=== PATIENT | female | born 1990 | race American Indian/Alaskan Native ===

== ENCOUNTER 2020-11-29 05:57 | Day surgery (SDC) | payer MEDICAID ==
[2020-11-29] MEDS ORDERED: SCOPOLAMINE TRANSDERMAL PATCH 72 HR TD NR (06:00)
[2020-11-29] MEDS ORDERED: MIDAZOLAM 2 MG/2 ML INJ IV NR (06:00)
[2020-11-29] MEDS ORDERED: CELECOXIB 200 MG CAP PO NR (06:00)
[2020-11-29] MEDS ORDERED: ACETAMINOPHEN 500 MG TAB PO SCH (06:00)
[2020-11-29] MEDS ORDERED: GABAPENTIN 300 MG CAP PO NR (06:00)
[2020-11-29] MEDS ORDERED: LACTATED RINGERS 1,000 ML IV SCH (06:00)
--- NOTE | 2020-11-29 06:41 | Short Stay Summary ---
Short Stay Documentation Date of service: 11/29/20 Narrative H&P: Pt is a 30year old who presents today for elective sterilization. Pt is 2 months post delivery via . - History Principal diagnosis: Undesired fertility H&P: obtained from office Past Medical History: No medical history Past Surgical History: No surgical history Social history: single - Allergies and Medications Current Medications: Allergies No Known Allergies Allergy (Verified 11/15/20 14:58) Home Medications Medication Instructions Recorded Confirmed Last Taken Type No Known Home Medications [No 11/15/20 11/15/20 Unknown History Reported Home Medications] Active Medications Acetaminophen (Acetaminophen 500 Mg Tab) 1,000 mg PO PREOP MANI Celecoxib (Celecoxib 200 Mg Cap) 200 mg PO PREOP NR Stop: 11/29/20 23:00 Gabapentin (Gabapentin 300 Mg Cap) 300 mg PO PREOP NR Stop: 11/29/20 23:00 Lactated Ringer's (Lactated Ringers) 1,000 mls @ 100 mls/hr IV DIRECT MANI Stop: 11/29/20 23:59 Midazolam HCl (Midazolam 2 Mg/2 Ml Inj) 2 mg IV PREOP NR Stop: 11/29/20 23:00 Scopolamine (Scopolamine Transdermal Patch 72 Hr) 1 each TD PREOP NR Stop: 11/29/20 23:00 - Physical exam General appearance: no acute distress Integumentary: no rash HEENT: Atraumatic, PERRLA Lungs: Clear to auscultation, Normal air movement Breasts: deferred Heart: Regular rate, Normal S1, Normal S2 Gastrointestinal: normal, normoactive bowel sounds Female Genitourinary: deferred Rectal Exam: deferred Extremities: no ischemia, pulses intact, No edema - Brief post op/procedure progress note Date of procedure: 11/29/20 Pre-op diagnosis: Undesired fertility Post-op diagnosis: same Procedure: Laparoscopic Bilateral salpingectomy Anesthesia: GETA Findings: Normal uterus tubes and ovaries Surgeon: HELENA JUNG Estimated blood loss: 50-100ml Pathology: list (right and left fallopian tubes) Specimen disposition: to lab Condition: stable - Hospital course Hospital course: unremarkable - Disposition Condition at discharge: Good Disposition: 01 HOME / SELF CARE / HOMELESS Short Stay Discharge Plan Activity: advance as tolerated Weight Bearing Status: Weight Bear as Tolerated Diet: regular Wound: open to air Follow up with: HELENA JUNG MD [Staff Physician] - 14 Days Prescriptions: Ibuprofen [Motrin 800 MG tab] 800 mg PO Q8HR PRN #40 tablet PRN Reason: Pain, Mild (1-3) HYDROcodone/APAP 5-325 [Hubbard 5/325] 2 each PO Q6HR PRN #20 tablet PRN Reason: Pain
[2020-11-29] MEDS ORDERED: ceFAZolin/Water 2 GM/20 ML 2 GM/20 ML SYRINGE IV NR (07:00)
[2020-11-29] MEDS ORDERED: HYDROmorphone 1 MG/1 ML INJ ONE (07:13)
[2020-11-29] MEDS ORDERED: propofoL 200 MG/20 ML VIAL IV ONE (07:13)
[2020-11-29] MEDS ORDERED: LIDOCAINE MPF (2%) 20 MG/1 ML VIAL 5 ML ONE (07:14)
[2020-11-29] MEDS ORDERED: ROCURONIUM 50 MG/5 ML INJ IV ONE (07:14)
[2020-11-29] MEDS ORDERED: METHYLENE BLUE 50 MG/10 ML AMP ONE (07:22)
[2020-11-29] MEDS ORDERED: BUPIVACAINE/PF (0.25%) 2.5 MG/ML 30 ML VIAL INFILTRATI ONE ×2 (07:22→08:20)
--- NOTE | 2020-11-29 07:25 | Anesthesia Consultation ---
Anesthesia Consult and Med Hx Date of service: 11/29/20 - Airway Anesthetic Teeth Evaluation: Good, Partials ROM Head & Neck: Adequate Mental/Hyoid Distance: Adequate Mallampati Class: Class II Intubation Access Assessment: Probably Good - Pre-Operative Health Status ASA Pre-Surgery Classification: ASA2 Proposed Anesthetic Plan: General - Pulmonary Hx Smoking: Yes (former smoker quit 2 months) Hx Respiratory Symptoms: No Hx Sleep Apnea: No (CRISSY PRE SCREEN LOW RISK) - Cardiovascular System Hx Hypertension: No Hx Heart Attack/AMI: No - Central Nervous System CVA: No - Endocrine Hx Renal Disease: No Hx Liver Disease: No Hx Insulin Dependent Diabetes: No Hx Non-Insulin Dependent Diabetes: No Hx Thyroid Disease: No - Other Systems Hx Obesity: Yes (BMI 32) - Additional Comments Anesthesia Medical History Comments: No hx anesthetic complications.
--- NOTE | 2020-11-29 07:26 | Anesthesia Day of Surgery ---
Anesthesia Day of Surgery - Day of Surgery Patient Examined: Yes Patient H&P Reviewed: Yes Patient is NPO: Yes
[2020-11-29] MEDS ORDERED: oxyCODONE /ACETAMINOPHEN 5-325MG TAB PO PRN (08:00)
[2020-11-29] MEDS ORDERED: HYDROmorphone 1 MG/1 ML INJ IV PRN (08:00)
[2020-11-29] MEDS ORDERED: ONDANSETRON 4 MG/2 ML INJ IV PRN (08:00)
[2020-11-29] MEDS ORDERED: dexAMETHasone 20 MG/5 ML VIAL ONE (08:05)
[2020-11-29] MEDS ORDERED: ONDANSETRON 4 MG/2 ML INJ ONE (08:05)
[2020-11-29] MEDS ORDERED: SODIUM CHLORIDE 0.9% IRR 1,500 ML BOTTLE IR ONE (08:22)
[2020-11-29] MEDS ORDERED: NEOSTIGMINE 10MG/10 ML INJ MDV ONE (08:22)
[2020-11-29] MEDS ORDERED: GLYCOPYRROLATE 0.4 MG/2 ML INJ ONE ×2 (08:22)
[2020-11-29] MEDS ORDERED: KETOROLAC 30 MG/1 ML INJ ONE (08:24)
[2020-11-29] MEDS ORDERED: ALBUTEROL 2.5 MG/3 ML NEBU IH ONE (08:45)
--- NOTE | 2020-11-29 09:05 | Operative Report ---
Operative Report Operative Report: Preoperative diagnosis: Undesired fertility Postoperative diagnosis: Same Procedure: Bilateral laparoscopic salpingectomy Surgeon: Lulú Torres Anesthesia: General EBL: Minimal IV fluids: 1000 mL Urine output: 150 mL Findings: Normal uterus tubes and ovaries Specimens: Portion of right and left fallopian tube Complications: None The patient was properly identified as herself. She was then taken to the OR with IV running and in place. She was given general anesthesia without difficulty. She was placed in a dorsal lithotomy position. She was then prepped and draped in normal sterile fashion. Attention was turned to the patient's vagina. Her bladder was drained of clear urine with a red rubber c atheter. The speculum was then placed the patient's vagina. The cervix was visualized and grasped with tenaculum. The acorn cannula was then inserted. The surgeon's gloves were changed and attention turned to the patient's abdomen. A small incision was made in the patient's umbilicus incision a 5 mm trocar was placed. The laparoscope confirmed intra-abdominal placement. The abdomen was insufflated with CO2 gas to approximately 25 mmHg. Both fallopian tubes were identified. With direct visualization a second trocar was placed through an incision in the left lower quadrant. Both tubes were found and followed out to the fimbriated ends. Each tube was cauterized at the portion nearest the cornua, then cauterized across the broad ligament until the tube was completely detached. There was excellent hemostasis at the end of this portion of the procedure. Each tube was handed off for pathology. At this point the abdomen was deflated. All instruments were then removed from the abdomen. The incisions were then closed with 4-0 Monocryl. The incisions were also injected with quarter percent Marcaine. The patient tolerated the procedure well she was then awakened and taken recovery in stable condition. Sponge needle and instrument counts were correct 2.
[2020-11-29 09:55] VITALS: BP 122/70
--- NOTE | 2020-11-29 16:41 | Post Anesthesia Evaluation ---
- Post Anesthesia Evaluation Patient Participated: Yes Airway Patent: Yes Stable Respiratory Function: Yes Nausea/Vomiting: No Temp > 96.8F: Yes Pain Manageable: Yes Adequeate Hydration: Yes Anesthesia Complications: No
== END 2020-11-29 10:50 | disposition home or self-care (01) ==
LOC: OR 05:57
PROVIDERS: ATTEND Obstetrics & Gynecology
DX: Z64.0 Problems related to unwanted pregnancy (principal); E66.9 Obesity, unspecified; Z87.891 Personal history of nicotine dependence; Z79.899 Other long term (current) drug therapy; Z98.890 Other specified postprocedural states; Z68.32 Body mass index [BMI] 32.0-32.9, adult
CPT/HCPCS: 58661; 81025; 88302; J0690; J1100; J1170; J1885; J2250; J2405; J2704; J2710; J7120; Q9968